=== PATIENT | female | born 1960 | race Caucasian/White ===

== ENCOUNTER 2016-12-12 23:18 | Emergency (ER) | payer MEDICARE ==
[~2016-12-12] VITALS: Ht 160 cm; Wt 95.6 kg
[2016-12-12 23:19] VITALS: BP 199/103
[2016-12-12] MEDS ORDERED: CLON0.1T PO (23:32)
[2016-12-12] MEDS ORDERED: HYDROcodone/APAP 5/325 TABLET ONE (23:57)
[2016-12-13] MEDS ORDERED: HYDROcodone/APAP 5/325 TABLET PO ONE
== END 2016-12-13 00:05 | disposition home or self-care (01) ==
LOC: ED 23:59
DX: K08.89 Other specified disorders of teeth and supporting structures (principal); Z88.0 Allergy status to penicillin
CPT/HCPCS: 99283